=== PATIENT | male | born 1980 | race Caucasian/White ===

== ENCOUNTER 2018-06-25 20:57 | Emergency (ER) | payer MEDICARE ==
[~2018-06-25] VITALS: Ht 167.6 cm; Wt 94.3 kg
[~2018-06-25 20:57] MED LIST: ACET-2247 PO; AEC81 PO; FURO40TA7 PO; GLUC1KIT6 SQ; HYDR25TA PO; ISOS30TA6 PO; METO-391 PO; NITR0.4T SL; PANT40TA25 PO
[2018-06-25 21:42] LABS: BASOPHILS % (AUTO) 1.1 % (0.0-5.0); EOSINOPHILS % (AUTO) 7.6 % (0.0-8.0); HEMATOCRIT 33.7 % (42-54); LYMPHOCYTES % (AUTO) 23.1 % (21.0-51.0); MEAN CORPUSCULAR HEMOGLOBIN 24.9 pg (27.0-33.0); MEAN CORPUSCULAR VOLUME 80.4 fL (79-99); MONOCYTES % (AUTO) 6.6 % (3.0-13.0); NEUTROPHILS % (AUTO) 61.6 % (40.0-77.0); PLATELET COUNT (AUTO) 413 K/uL (130-400); RED BLOOD CELL COUNT(AUTO) 4.19 MIL/uL (4.50-6.20); RED CELL DISTRIBUTION WIDTH 14.7 % (11.0-15.5); WHITE BLOOD COUNT (AUTO) 12.1 K/uL (4.8-10.8)
[2018-06-25] MEDS ORDERED: MORPHINE SULFATE 4 MG/1ML SYG ONE (21:57)
[2018-06-25 22:02] LABS: CREATININE 1.4 mg/dL (0.5-1.5); POTASSIUM 4.2 mmol/L (3.5-5.1)
[2018-06-25 22:09] LABS: BILIRUBIN,TOTAL 0.4 mg/dL (0.2-1.0); TOTAL PROTEIN, SERUM 8.3 g/dL (6.0-8.3)
[2018-06-25] MEDS ORDERED: CEFTRIAXONE SODIUM 1 GM ONE (22:45)
[2018-06-25] MEDS ORDERED: VANCOMYCIN 1GM+NS 250ML 250 ML IV SCH (23:30)
[2018-06-25] MEDS ORDERED: ONDANSETRON HCL 4 MG/2 ML VIAL IVP PRN (23:30)
[2018-06-25] MEDS ORDERED: GLUCAGON 1MG KIT 1 MG ML IM PRN (23:30)
[2018-06-25] MEDS ORDERED: MORPHINE SULFATE 2 MG/ML 1ML SYG IVP PRN (23:30)
[2018-06-25] MEDS ORDERED: DEXTROSE 50%-WATER 50 ML DISP.SYRIN IV PRN (23:30)
[2018-06-26] MEDS ORDERED: INSULIN R PO SS1 SQ SCH (07:30)
[2018-06-26] MEDS ORDERED: ENOXAPARIN SODIUM 40 MG/0.4 ML SYRINGE SQ SCH (09:00)
[2018-06-26] MEDS ORDERED: PANTOPRAZOLE SODIUM 40 MG TABLET.DR PO SCH (09:00)
[2018-06-26] MEDS ORDERED: CEFTRIAXONE SODIUM 1 GM IVP SCH (23:00)
== END 2018-06-25 23:42 | disposition left against medical advice (07) ==
LOC: EDH 20:57
DX: L03.116 Cellulitis of left lower limb (principal); Z98.890 Other specified postprocedural states; Z88.6 Allergy status to analgesic agent; Z90.49 Acquired absence of other specified parts of digestive tract
CPT/HCPCS: 36415; 73630; 80053; 83605; 85025; 85378; 87040 ×2; 93005; 93971; 96374; 96375; 99284; J0696; J2270

== ENCOUNTER → 2018-11-10 | Outpatient (CLI) | payer MEDICARE | END | disposition home or self-care (01) | LOC: SHCH 10:56 | PROVIDERS: ATTEND Internal Medicine Cardiovascular Disease | DX: R06.09 Other forms of dyspnea (principal); I10 Essential (primary) hypertension | CPT/HCPCS: 93306 ==

== ENCOUNTER 2019-03-28 21:10 | Inpatient (IN) | payer MEDICARE ==
[~2019-03-28] VITALS: Ht 167.6 cm; Wt 100.0 kg
[2019-03-28] MEDS ORDERED: DEXTROSE 50%-WATER 50 ML DISP.SYRIN IV ONE ×3 (21:37→23:57)
[2019-03-28] MEDS ORDERED: SODIUM CHLORIDE 0.9% 1000ML 1,000 ML IV ONE (21:53)
[2019-03-28] MEDS ORDERED: MORPHINE SULFATE 4 MG/1ML SYG ONE (21:53)
[2019-03-28] MEDS ORDERED: ONDANSETRON HCL 4 MG/2 ML VIAL ONE (21:53)
[2019-03-28] MEDS ORDERED: ACETAMINOPHEN EXTRA STRENGTH 500 MG TABLET ONE (22:09)
[2019-03-28 22:35] LABS: POTASSIUM 3.5 mmol/L (3.5-5.1)
[2019-03-28 22:36] LABS: BASOPHILS % (AUTO) 0.6 % (0.0-5.0); EOSINOPHILS % (AUTO) 3.6 % (0.0-8.0); HEMATOCRIT 33.9 % (42-54); LYMPHOCYTES % (AUTO) 10.5 % (21.0-51.0); MEAN CORPUSCULAR HEMOGLOBIN 30.7 pg (27.0-33.0); MEAN CORPUSCULAR HGB CONC 34.4 g/dL (32.0-36.0); MEAN CORPUSCULAR VOLUME 89.4 fL (79-99); MONOCYTES % (AUTO) 3.8 % (3.0-13.0); NEUTROPHILS % (AUTO) 81.5 % (40.0-77.0); NUCLEATED RED BLOOD CELLS 0.1 % (0.0-0.19); PLATELET COUNT (AUTO) 372 K/uL (130-400); RED BLOOD CELL COUNT(AUTO) 3.79 MIL/uL (4.50-6.20); RED CELL DISTRIBUTION WIDTH 14.4 % (11.0-15.5); WHITE BLOOD COUNT (AUTO) 17.4 K/uL (4.8-10.8)
[2019-03-28 22:37] LABS: INR 0.95 (0.85-1.15)
[2019-03-28 22:39] LABS: ALBUMIN 3.2 g/dL (3.5-5.0); BILIRUBIN,TOTAL 1.2 mg/dL (0.2-1.0); TOTAL PROTEIN, SERUM 8.3 g/dL (6.0-8.3)
[2019-03-28] MEDS ORDERED: DEXTROSE 10%-WATER 1,000 ML IV ONE (22:55)
[2019-03-28] MEDS ORDERED: DEXAMETHASONE SOD PHOSPHATE 10MG/ML 1ML VIAL ONE (23:32)
[2019-03-28] MEDS ORDERED: KETOROLAC TROMETHAMINE 30MG/ML ONE (23:56)
[2019-03-29] MEDS ORDERED: FAMOTIDINE/PF 20 MG/2 ML VIAL IV ONE (00:29)
[2019-03-29] MEDS ORDERED: HYDROCORTISONE SOD SUCCINATE 100 MG/2 ML VIAL ONE (00:29)
[2019-03-29] MEDS ORDERED: LEVOFLOXACIN 500 MG/D5W 100 ML 100 ML ONE (01:09)
[2019-03-29] MEDS ORDERED: ACETAMINOPHEN 325 MG TAB PO PRN (01:15)
[2019-03-29] MEDS ORDERED: DEXTROSE 10%-WATER 1,000 ML IV SCH (01:30)
--- NOTE | 2019-03-29 02:01 | NUR ---
HOME MEDS PATIENT ADVISED TO CONTACT SPOUSE TO BRING HOME MEDS IN THE MORNING. PATIENT STABLE, GOOD, AND ALERT x3. CALL LIGHT WITHIN REACH, PATIENT VOICES NO FURTHER CONCERNS.
[2019-03-29] MEDS ORDERED: ONDANSETRON HCL 4 MG/2 ML VIAL ONE (02:58)
[2019-03-29 03:02] VITALS: BP 142/88
[2019-03-29] MEDS: ONDANSETRON HCL 4 MG/2 ML VIAL IVP PRN ×2 (03:52→14:08)
[2019-03-29] MEDS: MORPHINE SULFATE 4 MG/1ML SYG IVP PRN ×4 (03:58→19:48)
--- NOTE | 2019-03-29 04:12 | NUR ---
PLUMBER AND TINNER [facility] PAGED PER PT , HE HAS HX OF SEIZURES PT STATES HE HAS NOT YET STARTED ON HIS MEDICATION FOR SEIZURES DILANTIN WHICH HE DOES NOT KNOW THE DOSE AND THE IS YET TO BRING HOME MEDS ,
[2019-03-29] MEDS ORDERED: PHARMACY COMMUNICATION MISC SCH (04:45)
[2019-03-29] MEDS ORDERED: LORAZEPAM 2 MG/ML 1 ML VIAL IVP PRN ×2 (05:00→06:45)
[2019-03-29 05:32] LABS: HEMATOCRIT 35.1 % (42-54); MEAN CORPUSCULAR HEMOGLOBIN 29.9 pg (27.0-33.0); MEAN CORPUSCULAR HGB CONC 33.1 g/dL (32.0-36.0); MEAN CORPUSCULAR VOLUME 90.5 fL (79-99); PLATELET COUNT (AUTO) 317 K/uL (130-400); RED BLOOD CELL COUNT(AUTO) 3.88 MIL/uL (4.50-6.20); RED CELL DISTRIBUTION WIDTH 14.5 % (11.0-15.5); WHITE BLOOD COUNT (AUTO) 14.7 K/uL (4.8-10.8)
[2019-03-29 05:50] LABS: ALBUMIN 2.8 g/dL (3.5-5.0); CREATININE 2.2 mg/dL (0.5-1.5); PHOSPHORUS 2.4 mg/dL (2.5-4.9); POTASSIUM 5.2 mmol/L (3.5-5.1); TOTAL PROTEIN, SERUM 7.8 g/dL (6.0-8.3)
[2019-03-29] MEDS ORDERED: GLUCAGON 1MG KIT 1 MG ML IM PRN (06:45)
[2019-03-29] MEDS ORDERED: DEXTROSE 50%-WATER 50 ML DISP.SYRIN IV PRN (06:45)
[2019-03-29] MEDS ORDERED: INSULIN R PO SS1 SQ SCH (07:30)
[2019-03-29 08:00] VITALS: BP_SYST 152; BP_SYST 158; BP_DIAS 97; BP_DIAS 99
--- NOTE | 2019-03-29 08:36 | NUR ---
AM INSULIN Patient refused 8units of regular insulin. Stated he is going to pass on this dose. States his outpatient doctor has told him not to administer anything until his blood sugar is above 300 due to patient's history of dropping too soon, too low from as high as 500s to as low as the 20s. No regular insulin administered at this time. Patient is also attempting to eat but he states he is taking his time due to his fears of nausea.
[2019-03-29] MEDS: PANTOPRAZOLE 40 MG/VIAL IVP SCH (08:46)
[2019-03-29] MEDS ORDERED: DEXTROSE 5 % AND 0.9 % NACL 1,000 ML IV ONE (10:06)
[2019-03-29] MEDS: DEXTROSE 5 % AND 0.9 % NACL 1,000 ML IV SCH ×3 (10:08→21:06)
--- NOTE | 2019-03-29 11:44 | NUR ---
DCP CM met with pt discussed dc plans. Pt is independent prior to admission, lives at home with spouse. Denies any equipments/services. Pt feels safe to go back home, spouse able to assist with transportation and needs as necessary. DC plan to home once stable. CM to cont to follow up. Addendum: 03/29/19 at 1145 by DARIO CRUZ LVN CM Amended: Links added.
[2019-03-29 12:00] VITALS: BP 145/87
[2019-03-29 16:00] VITALS: BP 163/91
[2019-03-29 20:02] VITALS: BP 106/55
[2019-03-29] MEDS: PROMETHAZINE HCL 25 MG TABLET PO PRN (21:23)
[2019-03-29 23:31] VITALS: BP 110/73
[2019-03-29] MEDS: INSULIN HUMULIN R 100 UNIT/ML 3ML SQ SCH (23:54)
[2019-03-30] MEDS: MORPHINE SULFATE 4 MG/1ML SYG IVP PRN ×4 (03:25→22:27)
[2019-03-30] MEDS: INSULIN HUMULIN R 100 UNIT/ML 3ML SQ SCH ×4 (03:31→16:00)
[2019-03-30 03:36] VITALS: BP 126/46
[2019-03-30 05:09] LABS: HEMATOCRIT 31.3 % (42-54); MEAN CORPUSCULAR HEMOGLOBIN 30.3 pg (27.0-33.0); MEAN CORPUSCULAR HGB CONC 33.5 g/dL (32.0-36.0); MEAN CORPUSCULAR VOLUME 90.4 fL (79-99); PLATELET COUNT (AUTO) 321 K/uL (130-400); RED BLOOD CELL COUNT(AUTO) 3.46 MIL/uL (4.50-6.20); RED CELL DISTRIBUTION WIDTH 14.3 % (11.0-15.5); WHITE BLOOD COUNT (AUTO) 22.6 K/uL (4.8-10.8)
[2019-03-30 05:18] LABS: HEMOGLOBIN A1C 5.9 % (4.0-6.0)
[2019-03-30 05:29] LABS: CREATININE 2.2 mg/dL (0.5-1.5); POTASSIUM 4.5 mmol/L (3.5-5.1)
[2019-03-30 07:57] VITALS: BP 115/65
--- NOTE | 2019-03-30 08:31 | NUR ---
BLOOD SUGAR Level is 176mg/dL. Per Ella Mathis, do not give any coverage at this time.
[2019-03-30] MEDS ORDERED: METOCLOPRAMIDE 10 MG/2 ML VIAL ONE (08:44)
[2019-03-30] MEDS: PROMETHAZINE HCL 25 MG TABLET PO PRN (08:55)
[2019-03-30] MEDS: PANTOPRAZOLE 40 MG/VIAL IVP SCH (08:57)
[2019-03-30] MEDS: METOCLOPRAMIDE 10 MG/2 ML VIAL IVP SCH ×2 (09:07→17:20)
[2019-03-30] MEDS: DEXTROSE 5 % AND 0.9 % NACL 1,000 ML IV SCH (09:12)
[2019-03-30 12:00] VITALS: BP 113/67
[2019-03-30] MEDS: METRONIDAZOLE 500MG/100ML BAG 100 ML IV SCH ×2 (15:13→22:26)
[2019-03-30 16:00] VITALS: BP 128/82
[2019-03-30] MEDS: LEVOFLOXACIN 500 MG/D5W 100 ML 100 ML IV SCH (17:11)
[2019-03-30 19:46] VITALS: BP 148/87
[2019-03-30 23:32] VITALS: BP 124/79
[2019-03-31] MEDS: METOCLOPRAMIDE 10 MG/2 ML VIAL IVP SCH ×3 (01:26→16:45)
[2019-03-31 03:34] VITALS: BP 121/80
[2019-03-31 05:06] LABS: HEMATOCRIT 32.2 % (42-54); MEAN CORPUSCULAR HEMOGLOBIN 30.5 pg (27.0-33.0); MEAN CORPUSCULAR HGB CONC 33.9 g/dL (32.0-36.0); MEAN CORPUSCULAR VOLUME 90.2 fL (79-99); NUCLEATED RED BLOOD CELLS 0.1 % (0.0-0.19); PLATELET COUNT (AUTO) 293 K/uL (130-400); RED BLOOD CELL COUNT(AUTO) 3.57 MIL/uL (4.50-6.20); RED CELL DISTRIBUTION WIDTH 14.9 % (11.0-15.5); WHITE BLOOD COUNT (AUTO) 9.4 K/uL (4.8-10.8)
[2019-03-31 05:28] LABS: ALBUMIN 2.3 g/dL (3.5-5.0); BILIRUBIN,TOTAL 0.5 mg/dL (0.2-1.0); CREATININE 1.7 mg/dL (0.5-1.5); POTASSIUM 4.7 mmol/L (3.5-5.1); TOTAL PROTEIN, SERUM 6.8 g/dL (6.0-8.3)
[2019-03-31] MEDS: METRONIDAZOLE 500MG/100ML BAG 100 ML IV SCH ×2 (05:39→14:00)
[2019-03-31] MEDS: DEXTROSE 5 % AND 0.9 % NACL 1,000 ML IV SCH (05:39)
[2019-03-31] MEDS: MORPHINE SULFATE 4 MG/1ML SYG IVP PRN (05:46)
[2019-03-31 06:01] LABS: APPEARANCE,URINE Clear (CLEAR); BILIRUBIN,URINE Negative (NEGATIVE); COLOR,URINE Yellow (YELLOW); GLUCOSE, URINE (UA) Negative (NEGATIVE); KETONES,URINE Negative (NEGATIVE); LEUKOCYTE ESTERASE ,URINE Negative (NEGATIVE); NITRATE,URINE Negative (NEGATIVE); OCCULT BLOOD,URINE Negative (NEGATIVE); PH,URINE 5.5 (5.0-8.0); PROTEIN,URINE Negative (NEGATIVE)
[2019-03-31 06:02] LABS: BAND NEUTROPHILS % (MANUAL) 1 % (0-2); BASOPHILS % (MANUAL) 2 % (0-2); EOSINOPHILS % (MANUAL) 4 % (1-6); LYMPHOCYTES % (MANUAL) 27 % (22-44); MAN.DIFF COMMENT-IMPRESSION MANUAL DIFFERENTIAL; MONOCYTES % (MANUAL) 7 % (2-9); PLATELET MORPHOLOGY COMMENT ADEQUATE; SEGMENTED NEUTROPHILS % 59 % (40-70)
[2019-03-31] MEDS ORDERED: PANTOPRAZOLE SODIUM 40 MG TABLET.DR PO SCH (07:46)
[2019-03-31 08:00] VITALS: BP 169/88
[2019-03-31 12:00] VITALS: BP 163/96
[2019-03-31] MEDS ORDERED: LEVO500T2 PO (12:22)
[2019-03-31] MEDS ORDERED: METR500T PO (12:22)
[2019-03-31] MEDS ORDERED: HEPARIN SODIUM/PF 100UNIT/ML 5ML SYRINGE IV SCH (14:15)
[2019-03-31] MEDS: LEVOFLOXACIN 500 MG/D5W 100 ML 100 ML IV SCH (15:00)
== END 2019-03-31 17:25 | disposition home or self-care (01) | DRG 372 ==
LOC: EDH 21:10 → EDHIP 03-29 00:50 → OBSVTOIN 03-29 00:50 → 3AH 03-29 03:58
PROVIDERS: ADMIT Internal Medicine Critical Care Medicine; ATTEND Internal Medicine Critical Care Medicine
DX: A04.9 Bacterial intestinal infection, unspecified (principal); N17.9 Acute kidney failure, unspecified; E86.0 Dehydration; E11.43 Type 2 diabetes mellitus with diabetic autonomic (poly)neuropathy; E11.649 Type 2 diabetes mellitus with hypoglycemia without coma; K31.84 Gastroparesis; E78.5 Hyperlipidemia, unspecified; F31.9 Bipolar disorder, unspecified; F41.9 Anxiety disorder, unspecified; G40.909 Epilepsy, unspecified, not intractable, without status epilepticus; I10 Essential (primary) hypertension; Z79.82 Long term (current) use of aspirin; Z86.711 Personal history of pulmonary embolism; Z86.718 Personal history of other venous thrombosis and embolism; Z82.49 Family history of ischemic heart disease and other diseases of the circulatory system
CPT/HCPCS: 36415; 71045; 74176; 80048; 80053; 81003; 82533; 82948; 83036; 83605; 83690; 84100; 85025; 85027; 85610; 85730; 87040; 87088; 87804; 99291; C9113; G0378; J1100; J1642; J1720; J1815; J1885; J1956; J2270; J2405; J2765; J3490; J7030; J7042; J7070; Q0169

== ENCOUNTER 2019-07-18 02:06 | Observation (INO) | payer MEDICARE ==
[~2019-07-18] VITALS: Ht 167.6 cm; Wt 100.7 kg
[~2019-07-18 02:06] MED LIST changes: +LEVO500T2 PO; +METR500T PO
[2019-07-18 02:43] LABS: BASOPHILS % (AUTO) 0.5 % (0.0-5.0); EOSINOPHILS % (AUTO) 3.8 % (0.0-8.0); HEMATOCRIT 35.8 % (42-54); LYMPHOCYTES % (AUTO) 10.2 % (21.0-51.0); MEAN CORPUSCULAR HEMOGLOBIN 28.7 pg (27.0-33.0); MEAN CORPUSCULAR HGB CONC 31.8 g/dL (32.0-36.0); MEAN CORPUSCULAR VOLUME 90.2 fL (79-99); MONOCYTES % (AUTO) 5.2 % (3.0-13.0); NEUTROPHILS % (AUTO) 79.9 % (40.0-77.0); PLATELET COUNT (AUTO) 284 K/uL (130-400); RED BLOOD CELL COUNT(AUTO) 3.97 MIL/uL (4.50-6.20); RED CELL DISTRIBUTION WIDTH 13.4 % (11.0-15.5); WHITE BLOOD COUNT (AUTO) 18.9 K/uL (4.8-10.8)
[2019-07-18 03:01] LABS: INR 0.98 (0.85-1.15); PARTIAL THROMBOPLASTIN TIME 21.6 SEC (26.3-35.5); PROTHROMBIN TIME 10.3 SEC (9.6-11.6)
[2019-07-18] MEDS ORDERED: ONDANSETRON HCL 4 MG/2 ML VIAL ONE (03:24)
[2019-07-18] MEDS ORDERED: SODIUM CHLORIDE 0.9% 1000ML 1,000 ML IV ONE ×2 (03:25→16:22)
[2019-07-18] MEDS ORDERED: DEXTROSE 50%-WATER 50 ML DISP.SYRIN IV ONE (04:27)
[2019-07-18] MEDS ORDERED: DEXTROSE 10%-WATER 1,000 ML IV ONE (04:39)
[2019-07-18] MEDS ORDERED: CEFTRIAXONE SODIUM 1 GM ONE (05:52)
[2019-07-18] MEDS ORDERED: CLINDAMYCIN 600 MG/D5% WATER 50 ML IV ONE ×2 (06:46→14:54)
--- NOTE | 2019-07-18 11:46 | NUR ---
Initial Assessment SW spoke with patient. Patient lives with spouse. No home health but does have PHC with [facility] X 24.5 hours a week. No dialysis. DME: walker with seat, oximeter, BOM, glucometer (no insulin), nebulizer. Patient does not work. Patient needs assistance with ADL's and does not drive. PCP is Dr. Jason Lambert. Pharmacy is [facility] located in [place]. DCP is home.
[2019-07-18] MEDS ORDERED: ONDANSETRON HCL 4 MG/2 ML VIAL IV PRN (12:15)
[2019-07-18] MEDS: CLINDAMYCIN 600 MG/D5% WATER 50 ML IV SCH ×2 (12:15→20:14)
[2019-07-18] MEDS ORDERED: ACETAMINOPHEN 325 MG TAB PO PRN ×2 (12:15)
[2019-07-18] MEDS ORDERED: ALBUTEROL SULFATE 0.083% 2.5 MG/3 ML INH IH PRN (12:15)
[2019-07-18] MEDS ORDERED: DIPHENHYDRAMINE HCL 25 MG CAPSULE PO PRN (12:15)
[2019-07-18] MEDS ORDERED: ACETAMINOPHEN-CODEINE 300/30MG TAB PO PRN ×2 (12:15)
[2019-07-18] MEDS ORDERED: LACTULOSE 20 GM/30 ML UDCUP PO PRN (12:15)
[2019-07-18 12:47] LABS: ALANINE AMINOTRANSFERASE 22 U/L (12-78); ALBUMIN 2.5 g/dL (3.5-5.0); ASPARTATE AMINOTRANSFERASE 21 U/L (10-37); BILIRUBIN,TOTAL 0.7 mg/dL (0.2-1.0); CARBON DIOXIDE 25 mmol/L (21-32); CHLORIDE 104 mmol/L (101-111); CREATINE KINASE, TOTAL 281 U/L (21-232); CREATININE 1.2 mg/dL (0.5-1.5); GLOMERULAR FILTR. RATE CALC 71 mL/min (>60); GLUCOSE,RANDOM 202 mg/dL (70-105); LIPASE 71 U/L (114-286); PHENYTOIN (DILANTIN) < 0.5 mcg/mL (10.0-20.0); POTASSIUM 3.8 mmol/L (3.5-5.1); SODIUM SERUM 138 mmol/L (136-145); UREA NITROGEN, BLOOD 12 mg/dL (7-18)
[2019-07-18] MEDS: ZOSYN 3.375GM+NS 50ML 50 ML IV SCH ×2 (13:00→20:14)
[2019-07-18] MEDS ORDERED: METOCLOPRAMIDE 10 MG/2 ML VIAL ONE (13:23)
[2019-07-18] MEDS ORDERED: METHYLPREDNISOLONE SOD SUCC 125MG/2ML VIAL ONE (13:24)
[2019-07-18] MEDS ORDERED: ENOXAPARIN SODIUM 40 MG/0.4 ML SYRINGE SQ ONE (13:24)
[2019-07-18] MEDS ORDERED: ZOSYN 3.375GM+NS 50ML 50 ML IV ONE (13:24)
[2019-07-18] MEDS ORDERED: FAMOTIDINE/PF 20 MG/2 ML VIAL IV ONE (13:25)
[2019-07-18] MEDS ORDERED: ACETAMINOPHEN-CODEINE 300/30MG TAB ONE (13:25)
[2019-07-18] MEDS: METHYLPREDNISOLONE SOD SUCC 125MG/2ML VIAL IV SCH ×2 (14:00→20:15)
[2019-07-18] MEDS ORDERED: PHENYTOIN SODIUM 100 MG ERCAP PO ONE (16:23)
[2019-07-18] MEDS: METOCLOPRAMIDE 10 MG/2 ML VIAL IVP SCH (17:00)
[2019-07-18 18:35] VITALS: BP 145/98
[2019-07-18 19:00] VITALS: BP 131/76
[2019-07-18] MEDS: CLONAZEPAM 2 MG TABLET PO SCH (20:13)
[2019-07-18] MEDS: PHENYTOIN SODIUM 100 MG ERCAP PO SCH (20:13)
[2019-07-18] MEDS: FAMOTIDINE 20MG TAB 20 MG TAB PO SCH (20:13)
[2019-07-18] MEDS: VIBERZI 100 MG PO SCH (20:17)
--- NOTE | 2019-07-18 20:30 | NUR ---
PAGED MARTITA FALCON FROM [facility] FOR PATIENT'S BLOOD SUGAR OF 296, NO SLIDING SCALE, AND HIGH BLOOD PRESSURE OF 175/97. PENDING CALL BACK.
[2019-07-18] MEDS ORDERED: GLUCAGON 1MG KIT 1 MG ML IM PRN (21:30)
[2019-07-18] MEDS ORDERED: DEXTROSE 50%-WATER 50 ML DISP.SYRIN IV PRN (21:30)
[2019-07-18] MEDS ORDERED: HYDRALAZINE HCL 20 MG/ML VIAL ONE (21:40)
[2019-07-18] MEDS: INSULIN HUMULIN R 100 UNIT/ML 3ML SQ SCH ×2 (21:43→23:26)
[2019-07-18] MEDS ORDERED: HYDRALAZINE HCL 20 MG/ML VIAL IV PRN (21:45)
[2019-07-18 23:00] VITALS: BP 125/76
--- NOTE | 2019-07-19 | NUR ---
PAGED MARTITA FALCON, [facility] FOR PATIENT'S BLOOD SUGAR OF 402. PATIENT HAS NAUSEA AND PAIN. HE DIDN'T GIVE ANY NEW ORDERS BUT TO CONTINUE MONITORING SUGAR EVERY 4 HOURS AND USE THE 1/2 SLIDING SCALE. GAVE ZOFRAN AND ACETAMINOPHEN WITH CODEINE TO PATIENT.
[2019-07-19 03:00] VITALS: BP 147/98
[2019-07-19] MEDS: CLINDAMYCIN 600 MG/D5% WATER 50 ML IV SCH ×2 (03:20→12:05)
[2019-07-19] MEDS: ZOSYN 3.375GM+NS 50ML 50 ML IV SCH ×2 (03:20→13:31)
[2019-07-19] MEDS: SODIUM CHLORIDE 0.9% 1000ML 1,000 ML IV SCH ×2 (03:31→08:05)
[2019-07-19 05:16] LABS: HEMATOCRIT 39.4 % (42-54); MEAN CORPUSCULAR HEMOGLOBIN 28.7 pg (27.0-33.0); MEAN CORPUSCULAR HGB CONC 31.7 g/dL (32.0-36.0); MEAN CORPUSCULAR VOLUME 90.4 fL (79-99); PLATELET COUNT (AUTO) 345 K/uL (130-400); RED BLOOD CELL COUNT(AUTO) 4.36 MIL/uL (4.50-6.20); RED CELL DISTRIBUTION WIDTH 13.5 % (11.0-15.5); WHITE BLOOD COUNT (AUTO) 26.1 K/uL (4.8-10.8)
[2019-07-19] MEDS: METOCLOPRAMIDE 10 MG/2 ML VIAL IVP SCH ×2 (05:18→09:47)
[2019-07-19] MEDS: METHYLPREDNISOLONE SOD SUCC 125MG/2ML VIAL IV SCH (05:18)
[2019-07-19] MEDS: INSULIN HUMULIN R 100 UNIT/ML 3ML SQ SCH ×3 (05:22→16:00)
[2019-07-19 05:32] LABS: ALBUMIN 2.5 g/dL (3.5-5.0); BILIRUBIN,DIRECT 0.1 mg/dL (0.0-0.3); BILIRUBIN,TOTAL 0.7 mg/dL (0.2-1.0); CREATININE 1.5 mg/dL (0.5-1.5); POTASSIUM 4.8 mmol/L (3.5-5.1); TOTAL PROTEIN, SERUM 7.8 g/dL (6.0-8.3)
[2019-07-19 07:57] VITALS: BP 129/82
[2019-07-19] MEDS ORDERED: ENOXAPARIN SODIUM 40 MG/0.4 ML SYRINGE SQ SCH ×2 (09:00)
[2019-07-19] MEDS: VIBERZI 100 MG PO SCH (09:00)
[2019-07-19] MEDS: PHENYTOIN SODIUM 100 MG ERCAP PO SCH ×2 (09:46→13:31)
[2019-07-19] MEDS: CLONAZEPAM 2 MG TABLET PO SCH ×2 (09:46→13:31)
[2019-07-19] MEDS: FAMOTIDINE 20MG TAB 20 MG TAB PO SCH (09:46)
[2019-07-19 11:33] VITALS: BP 137/91
[2019-07-19] MEDS ORDERED: METHYLPREDNISOLONE SOD SUCC 40MG/ML 1ML IVP SCH (13:30)
--- NOTE | 2019-07-19 14:16 | NUR ---
[id number] patient signed IM Letter. Faxed to [phone] and placed in chart under consent tab
[2019-07-19] MEDS ORDERED: MOXI400T33 PO (14:30)
[2019-07-19] MEDS ORDERED: METF-444 PO (14:30)
[2019-07-19] MEDS ORDERED: CLIN300C9 PO (14:30)
--- NOTE | 2019-07-19 14:33 | NUR ---
[facility] CONSULT PATIENT ASSESSED ORDERED: PATIENT PRESENTS WITH OPEN WOUNDS TO UMBILICUS AND LEFT PRE TIB; [facility] RECOMMENDATIONS SUBMITTED. Addendum: 07/19/19 at 1435 by SELENE SAMUEL LVN LVN W Amended: Links added.
[2019-07-19] MEDS ORDERED: HONEY 1 APPL/ML TUBE TP ONE (17:47)
== END 2019-07-19 18:00 | disposition home or self-care (01) ==
LOC: EDH 02:06 → EDHIP 05:01 → OBSVTOIN 05:01 → INTOOBSV 05:01 → 3AH 18:09
PROVIDERS: ADMIT Internal Medicine; ATTEND Internal Medicine
DX: E11.649 Type 2 diabetes mellitus with hypoglycemia without coma (principal); G40.909 Epilepsy, unspecified, not intractable, without status epilepticus; L03.116 Cellulitis of left lower limb; E11.43 Type 2 diabetes mellitus with diabetic autonomic (poly)neuropathy; K31.84 Gastroparesis; F41.9 Anxiety disorder, unspecified; F31.9 Bipolar disorder, unspecified; I10 Essential (primary) hypertension; Z79.899 Other long term (current) drug therapy; Z90.49 Acquired absence of other specified parts of digestive tract; Z88.6 Allergy status to analgesic agent; Z79.82 Long term (current) use of aspirin
CPT/HCPCS: 36415 ×2; 73030; 73590; 76705; 80048; 80053; 80076; 80185; 82550 ×2; 82948 ×12; 83605; 83690; 84484; 85025; 85027; 85610; 85651; 85730; 86038; 86140; 86255 ×3; 86431; 87040 ×2; 87804 ×2; 93005; 93971; 94664; 96365; 96366 ×2; 96368; 96372 ×2; 96375; 96376; 97116; 97161; 99284; G0378 ×20; G8978; G8979; G8980; G8981; G8982; G8983; J0360; J0696; J1650 ×2; J1815 ×3; J2405 ×2; J2543 ×4; J2765 ×3; J2930 ×3; J3490 ×7; J7030 ×2; J7070; 86215; 86235

== ENCOUNTER 2021-05-24 14:17 | Emergency (ER) | payer MEDICARE ==
[~2021-05-24] VITALS: Ht 167.6 cm; Wt 93.0 kg
[~2021-05-24 14:17] MED LIST changes: +CLIN-141 PO; -ISOS30TA6 PO; +ISOS30TA92 PO; -LEVO500T2 PO; +METF-444 PO; -METR500T PO; +MOXI400T33 PO; -PANT40TA25 PO; +PANT40TA54 PO
[2021-05-24 15:10] LABS: BASOPHILS % (AUTO) 0.7 % (0.0-5.0); EOSINOPHILS % (AUTO) 7.1 % (0.0-8.0); HEMATOCRIT 38.2 % (42-54); LYMPHOCYTES % (AUTO) 28.4 % (21.0-51.0); MEAN CORPUSCULAR HEMOGLOBIN 28.6 pg (27.0-33.0); MEAN CORPUSCULAR HGB CONC 32.5 g/dL (32.0-36.0); MEAN CORPUSCULAR VOLUME 88.2 fL (79-99); MONOCYTES % (AUTO) 4.6 % (3.0-13.0); NEUTROPHILS % (AUTO) 58.9 % (40.0-77.0); PLATELET COUNT (AUTO) 358 K/uL (130-400); RED BLOOD CELL COUNT(AUTO) 4.33 MIL/uL (4.50-6.20); RED CELL DISTRIBUTION WIDTH 14.1 % (11.0-15.5); WHITE BLOOD COUNT (AUTO) 10.8 K/uL (4.8-10.8)
[2021-05-24 15:20] LABS: INR 0.98 (0.85-1.15); PROTHROMBIN TIME 10.7 SEC (9.6-11.6)
[2021-05-24 15:22] LABS: PARTIAL THROMBOPLASTIN TIME 26.7 SEC (26.3-35.5)
[2021-05-24] MEDS ORDERED: DEXTROSE 50%-WATER 50 ML DISP.SYRIN IV ONE ×2 (15:25→16:00)
[2021-05-24 15:31] LABS: B-TYPE NATRIURETIC PEPTIDE 14 pg/mL (0-100)
[2021-05-24 15:34] LABS: ALBUMIN 3.5 g/dL (3.5-5.0); BILIRUBIN,TOTAL 0.8 mg/dL (0.2-1.0); CREATININE 1.5 mg/dL (0.5-1.5); MAGNESIUM 1.7 mg/dL (1.80-2.40); POTASSIUM 3.7 mmol/L (3.5-5.1); TOTAL PROTEIN, SERUM 8.5 g/dL (6.0-8.3)
[2021-05-24] MEDS ORDERED: MORPHINE 4 MG SYG IV ONE (17:30)
[2021-05-24] MEDS ORDERED: 0.9%NACL 1000ML 1,000 ML IV ONE (19:00)
[2021-05-24] MEDS ORDERED: ORPHENADRINE CITRATE 30 MG/ML ML IV ONE (22:00)
[2021-05-24 23:44] VITALS: BP 147/87
[2021-05-25 00:04] LABS: APPEARANCE,URINE Clear (CLEAR); BILIRUBIN,URINE Negative (NEGATIVE); COLOR,URINE Yellow (YELLOW); GLUCOSE, URINE (UA) Negative (NEGATIVE); KETONES,URINE Negative (NEGATIVE); LEUKOCYTE ESTERASE ,URINE Trace (NEGATIVE); NITRATE,URINE Negative (NEGATIVE); OCCULT BLOOD,URINE Negative (NEGATIVE); PH,URINE 5.5 (5.0-8.0); PROTEIN,URINE POS 1+ mg/dL (NEGATIVE); UROBILINOGEN,URINE 0.2 mg/dL (0.2-1.0)
[2021-05-25] MEDS ORDERED: CYCL-309 PO (00:23)
[2021-05-25] MEDS ORDERED: HEPARIN PF LOCK 500 UNIT/5ML IV ONE (00:46)
[2021-05-25] MEDS ORDERED: HEPARIN PF LOCK 500 UNIT/5ML IV SCH (01:00)
[2021-05-25 01:16] LABS: BACTERIA,URINE Rare /HPF (None Seen); RBC,URINE None Seen /HPF (0-1); SQUAMOUS EPITHELIAL CELL,UR 0-2 /HPF (0-2)
== END 2021-05-25 00:45 | disposition home or self-care (01) ==
LOC: EDH 14:17
DX: E11.649 Type 2 diabetes mellitus with hypoglycemia without coma (principal); R55 Syncope and collapse; M25.511 Pain in right shoulder; I10 Essential (primary) hypertension; Z88.6 Allergy status to analgesic agent; Z79.899 Other long term (current) drug therapy; Z79.84 Long term (current) use of oral hypoglycemic drugs; Z79.82 Long term (current) use of aspirin
CPT/HCPCS: 36415; 70450; 71045; 73030; 73200; 78579; 80053; 81001; 82550; 82948 ×3; 83735; 83880; 84484; 85025; 85378; 85610; 85730; 93005; 96361; 96374; 96375; 99285; A9558; J1642; J2270; J2360; J7070

== ENCOUNTER 2021-07-02 13:44 | Observation (INO) | payer OTHER, MEDICARE ==
[~2021-07-02] VITALS: Ht 167.6 cm; Wt 88.4 kg
[~2021-07-02 13:44] MED LIST changes: +CYCL-309 PO
[2021-07-02] MEDS ORDERED: DEXTROSE 50%-WATER 50 ML DISP.SYRIN IV ONE ×3 (14:16→16:26)
[2021-07-02 14:35] LABS: BASOPHILS % (AUTO) 0.6 % (0.0-5.0); EOSINOPHILS % (AUTO) 3.9 % (0.0-8.0); HEMATOCRIT 37.6 % (42-54); LYMPHOCYTES % (AUTO) 25.4 % (21.0-51.0); MEAN CORPUSCULAR HGB CONC 31.4 g/dL (32.0-36.0); MEAN CORPUSCULAR VOLUME 89.1 fL (79-99); MONOCYTES % (AUTO) 5.4 % (3.0-13.0); NEUTROPHILS % (AUTO) 64.3 % (40.0-77.0); PLATELET COUNT (AUTO) 357 K/uL (130-400); RED BLOOD CELL COUNT(AUTO) 4.22 MIL/uL (4.50-6.20); RED CELL DISTRIBUTION WIDTH 14.2 % (11.0-15.5); WHITE BLOOD COUNT (AUTO) 7.8 K/uL (4.8-10.8)
[2021-07-02 14:47] LABS: ALBUMIN 3.5 g/dL (3.5-5.0); CREATININE 2.1 mg/dL (0.5-1.5); POTASSIUM 3.2 mmol/L (3.5-5.1); TOTAL PROTEIN, SERUM 8.6 g/dL (6.0-8.3)
[2021-07-02] MEDS ORDERED: POTASSIUM CHLORIDE 10% ELIXIR 20 MEQ/15 ML UDCUP PO PRN (21:00)
[2021-07-02] MEDS: INSULIN HUMULIN R 100 UNIT/ML 3ML SQ SCH (21:00)
[2021-07-02] MEDS ORDERED: MORPHINE 2 MG SYG IVP PRN (21:00)
[2021-07-02] MEDS ORDERED: CLONIDINE HCL 0.1 MG TABLET PO PRN (21:00)
[2021-07-02] MEDS ORDERED: MAGNESIUM 2GM PREMIX 50ML 50 ML IV PRN (21:00)
[2021-07-02] MEDS ORDERED: TEMAZEPAM 15 MG CAPSULE PO PRN (21:00)
[2021-07-02] MEDS ORDERED: LIDOCAINE HCL-MPF 1% 2ML VIAL IV PRN (21:00)
[2021-07-02] MEDS ORDERED: SIMVASTATIN 20 MG TABLET PO SCH (21:00)
[2021-07-02] MEDS ORDERED: ACETAMINOPHEN 650 MG SUPPOSITORY RC PRN (21:00)
[2021-07-02] MEDS ORDERED: GLUCAGON 1MG KIT 1 MG ML IM PRN (21:00)
[2021-07-02] MEDS ORDERED: ONDANSETRON 4MG INJ IVP PRN (21:00)
[2021-07-02] MEDS ORDERED: ACETAMINOPHEN 325 MG TAB PO PRN (21:00)
[2021-07-02] MEDS ORDERED: POTASSIUM CHLORIDE 20MEQ/100ML 100 ML IV PRN (21:00)
[2021-07-02] MEDS: DEXTROSE 5%-LACTATED RINGERS 1,000 ML IV SCH (21:45)
[2021-07-02] MEDS: METOCLOPRAMIDE 5 MG TABLET PO SCH (21:50)
[2021-07-02 21:54] LABS: APPEARANCE,URINE Clear (CLEAR); BILIRUBIN,URINE Negative (NEGATIVE); COLOR,URINE Yellow (YELLOW); GLUCOSE, URINE (UA) Negative (NEGATIVE); KETONES,URINE Negative (NEGATIVE); LEUKOCYTE ESTERASE ,URINE Trace (NEGATIVE); NITRATE,URINE Negative (NEGATIVE); OCCULT BLOOD,URINE Negative (NEGATIVE); PROTEIN,URINE POS 2+ mg/dL (NEGATIVE)
[2021-07-02 21:59] LABS: BACTERIA,URINE Few /HPF (None Seen); HYALINE CASTS, URINE 0-1 /LPF (0-1 /LPF); RBC,URINE 0-1 /HPF (0-1); SQUAMOUS EPITHELIAL CELL,UR Few /HPF (0-2)
[2021-07-03 01:20] VITALS: BP 134/84
[2021-07-03] MEDS: DEXTROSE 50%-WATER 50 ML DISP.SYRIN IV PRN ×2 (01:20→05:55)
[2021-07-03] MEDS ORDERED: PROM25TA7 PO (02:10)
[2021-07-03] MEDS ORDERED: ELUX100T PO (02:10)
[2021-07-03 04:32] VITALS: BP 126/80
[2021-07-03 06:15] LABS: BASOPHILS % (AUTO) 0.4 % (0.0-5.0); EOSINOPHILS % (AUTO) 0.5 % (0.0-8.0); HEMATOCRIT 36.2 % (42-54); LYMPHOCYTES % (AUTO) 11.2 % (21.0-51.0); MEAN CORPUSCULAR HEMOGLOBIN 28.4 pg (27.0-33.0); MEAN CORPUSCULAR HGB CONC 32.6 g/dL (32.0-36.0); NEUTROPHILS % (AUTO) 82.5 % (40.0-77.0); PLATELET COUNT (AUTO) 372 K/uL (130-400); RED BLOOD CELL COUNT(AUTO) 4.16 MIL/uL (4.50-6.20); RED CELL DISTRIBUTION WIDTH 14.2 % (11.0-15.5); WHITE BLOOD COUNT (AUTO) 22.7 K/uL (4.8-10.8)
[2021-07-03 06:36] LABS: CREATININE 1.5 mg/dL (0.5-1.5); POTASSIUM 3.3 mmol/L (3.5-5.1); THYROID STIMULATING HORMONE 0.85 uIU/mL (0.36-3.74)
[2021-07-03] MEDS: INSULIN HUMULIN R 100 UNIT/ML 3ML SQ SCH ×3 (07:30→16:16)
[2021-07-03 08:05] VITALS: BP 108/72
[2021-07-03] MEDS: METOCLOPRAMIDE 5 MG TABLET PO SCH ×3 (08:35→16:16)
[2021-07-03] MEDS ORDERED: PANTOPRAZOLE 40 MG TAB DR PO SCH (09:00)
[2021-07-03] MEDS ORDERED: POLYETHYLENE GLYCOL 3350 17 GM POWD.PACK PO SCH (09:00)
[2021-07-03] MEDS ORDERED: ASPIRIN 81MG CHEW TAB PO SCH (09:00)
[2021-07-03] MEDS ORDERED: ENOXAPARIN SODIUM 40 MG/0.4 ML SYRINGE SQ SCH (09:00)
[2021-07-03] MEDS ORDERED: ISOSORBIDE MONO 60MG SR TAB PO SCH (09:00)
[2021-07-03] MEDS: KCL 20 MEQ ERTAB PO PRN (09:21)
[2021-07-03 11:11] VITALS: BP 111/70
[2021-07-03 15:46] VITALS: BP 119/71
[2021-07-03] MEDS: DEXTROSE 5%-LACTATED RINGERS 1,000 ML IV SCH (16:18)
== END 2021-07-03 20:14 | disposition left against medical advice (07) ==
LOC: EDH 13:44 → EDHIP 20:33 → 3BH 07-03 00:07
PROVIDERS: ADMIT Internal Medicine; ATTEND Internal Medicine
DX: E10.649 Type 1 diabetes mellitus with hypoglycemia without coma (principal); R41.82 Altered mental status, unspecified; I73.9 Peripheral vascular disease, unspecified; K31.84 Gastroparesis; N17.9 Acute kidney failure, unspecified; I12.9 Hypertensive chronic kidney disease with stage 1 through stage 4 chronic kidney disease, or unspecified chronic kidney disease; N18.9 Chronic kidney disease, unspecified; E78.5 Hyperlipidemia, unspecified; G93.41 Metabolic encephalopathy; F41.9 Anxiety disorder, unspecified; G40.909 Epilepsy, unspecified, not intractable, without status epilepticus; Z79.82 Long term (current) use of aspirin; Z53.29 Procedure and treatment not carried out because of patient's decision for other reasons; Z79.4 Long term (current) use of insulin; Z79.899 Other long term (current) drug therapy; Z98.890 Other specified postprocedural states
CPT/HCPCS: 36415 ×2; 71045; 80048; 80053; 81001; 82533; 82948 ×16; 83036; 84443; 85025 ×2; 96361 ×2; 96372; 96374; 96376 ×2; 99284; G0378 ×23; J1650; J3490 ×2; J7070 ×5

== ENCOUNTER 2022-08-13 01:32 | Observation (INO) | payer MEDICARE ==
[~2022-08-13] VITALS: Ht 167.6 cm; Wt 98.1 kg
[~2022-08-13 01:32] MED LIST changes: -ACET-2247 PO; -AEC81 PO; -CLIN-141 PO; -CYCL-309 PO; +ELUX100T PO; -FURO40TA7 PO; -HYDR25TA PO; -ISOS30TA92 PO; -METF-444 PO; -METO-391 PO; -MOXI400T33 PO; -PANT40TA54 PO; +PROM25TA7 PO
[2022-08-13] MEDS ORDERED: DEXTROSE 50%-WATER 50 ML DISP.SYRIN IV ONE ×2 (01:34→02:00)
[2022-08-13] MEDS ORDERED: GLUCAGON 1MG KIT 1 MG ML ONE (01:41)
[2022-08-13 01:49] LABS: BASOPHILS % (AUTO) 0.5 % (0.0-5.0); EOSINOPHILS % (AUTO) 3.9 % (0.0-8.0); HEMATOCRIT 35.3 % (42-54); LYMPHOCYTES % (AUTO) 11.6 % (21.0-51.0); MEAN CORPUSCULAR HEMOGLOBIN 27.7 pg (27.0-33.0); MEAN CORPUSCULAR HGB CONC 31.2 g/dL (32.0-36.0); MEAN CORPUSCULAR VOLUME 88.9 fL (79-99); MONOCYTES % (AUTO) 6.3 % (3.0-13.0); NEUTROPHILS % (AUTO) 77.3 % (40.0-77.0); PLATELET COUNT (AUTO) 376 K/uL (130-400); RED BLOOD CELL COUNT(AUTO) 3.97 MIL/uL (4.50-6.20); RED CELL DISTRIBUTION WIDTH 14.8 % (11.0-15.5); WHITE BLOOD COUNT (AUTO) 15.2 K/uL (4.8-10.8)
[2022-08-13] MEDS ORDERED: GLUCAGON 1MG KIT 1 MG ML SQ ONE (02:00)
[2022-08-13 02:02] LABS: ALBUMIN 3.2 g/dL (3.5-5.0); CREATININE 1.5 mg/dL (0.5-1.5); POTASSIUM 3.9 mmol/L (3.5-5.1); TOTAL PROTEIN, SERUM 7.7 g/dL (6.0-8.3)
[2022-08-13] MEDS ORDERED: CLONIDINE HCL 0.1 MG TABLET PO PRN (05:00)
[2022-08-13] MEDS ORDERED: DEXTROSE 5%-LACTATED RINGERS 1,000 ML IV SCH (05:00)
[2022-08-13] MEDS ORDERED: HYDRALAZINE 20MG/ML VIAL IV PRN (05:00)
[2022-08-13] MEDS ORDERED: LABETALOL 20MG SYG IV PRN (05:00)
[2022-08-13] MEDS ORDERED: ONDANSETRON 4MG INJ IVP PRN (05:00)
[2022-08-13] MEDS ORDERED: ACETAMINOPHEN 325 MG TAB PO PRN (05:00)
[2022-08-13] MEDS: INSULIN HUMULIN R 100 UNIT/ML 3ML SQ SCH ×3 (07:30→16:30)
[2022-08-13 08:00] VITALS: BP 134/84
[2022-08-13 08:19] LABS: INR 0.95 (0.85-1.15); PROTHROMBIN TIME 10.4 SEC (9.6-11.6)
[2022-08-13 08:20] LABS: PARTIAL THROMBOPLASTIN TIME 26.5 SEC (26.3-35.5)
[2022-08-13] MEDS: PANTOPRAZOLE 40 MG TAB DR PO SCH (08:28)
[2022-08-13] MEDS: ENOXAPARIN SODIUM 30 MG/0.3 ML SQ SCH (08:30)
[2022-08-13 12:00] VITALS: BP 130/65
[2022-08-13 12:13] LABS: APPEARANCE,URINE CLEAR (CLEAR); BILIRUBIN,URINE NEGATIVE (NEGATIVE); COLOR,URINE COLORLESS (YELLOW); GLUCOSE, URINE (UA) NEGATIVE (NEGATIVE); KETONES,URINE NEGATIVE (NEGATIVE); LEUKOCYTE ESTERASE ,URINE NEGATIVE Leu/uL (NEGATIVE); NITRATE,URINE NEGATIVE (NEGATIVE); OCCULT BLOOD,URINE NEGATIVE (NEGATIVE); PROTEIN,URINE 20 mg/dL (NEGATIVE); UROBILINOGEN,URINE 0.2 mg/dL (0.2-1.0)
[2022-08-13 12:15] LABS: AMPHET/METH SCREEN,URINE NEGATIVE (NEGATIVE); BARBITURATE SCREEN, URINE NEGATIVE (NEGATIVE); BENZODIAZEPINES SCREEN,URINE NEGATIVE (NEGATIVE); CANNABINOID SCREEN,URINE NEGATIVE (NEGATIVE); COCAINE SCREEN,URINE NEGATIVE (NEGATIVE); OPIATE SCREEN,URINE NEGATIVE (NEGATIVE); PHENCYCLIDINE SCREEN,URINE NEGATIVE (NEGATIVE)
[2022-08-13 12:22] LABS: MUCUS,URINE RARE LPF (None Seen); RBC,URINE 0-1 /HPF (0-1); SQUAMOUS EPITHELIAL CELL,UR RARE /HPF (0-2); WBC,URINE 0-1 /HPF (0-1)
[2022-08-13 16:00] VITALS: BP 109/61
[2022-08-13] MEDS ORDERED: LISINOPRIL 10 MG TABLET PO SCH (16:00)
[2022-08-13 21:50] VITALS: BP 119/82
[2022-08-13 23:46] VITALS: BP 102/66
[2022-08-14 04:13] VITALS: BP 127/68
[2022-08-14 05:29] LABS: BASOPHILS % (AUTO) 0.9 % (0.0-5.0); EOSINOPHILS % (AUTO) 9.5 % (0.0-8.0); HEMATOCRIT 35.3 % (42-54); LYMPHOCYTES % (AUTO) 20.2 % (21.0-51.0); MEAN CORPUSCULAR HEMOGLOBIN 28.2 pg (27.0-33.0); MEAN CORPUSCULAR HGB CONC 30.3 g/dL (32.0-36.0); MEAN CORPUSCULAR VOLUME 92.9 fL (79-99); MONOCYTES % (AUTO) 8.2 % (3.0-13.0); NEUTROPHILS % (AUTO) 60.9 % (40.0-77.0); PLATELET COUNT (AUTO) 339 K/uL (130-400); WHITE BLOOD COUNT (AUTO) 10.5 K/uL (4.8-10.8)
[2022-08-14 05:43] LABS: CREATININE 1.3 mg/dL (0.5-1.5); MAGNESIUM 1.7 mg/dL (1.80-2.40); PHOSPHORUS 2.9 mg/dL (2.5-4.9); POTASSIUM 4.8 mmol/L (3.5-5.1)
[2022-08-14] MEDS: INSULIN HUMULIN R 100 UNIT/ML 3ML SQ SCH ×3 (07:30→16:24)
[2022-08-14 08:00] VITALS: BP 134/85
[2022-08-14] MEDS: PANTOPRAZOLE 40 MG TAB DR PO SCH (10:15)
[2022-08-14] MEDS: ENOXAPARIN SODIUM 30 MG/0.3 ML SQ SCH (10:20)
[2022-08-14] MEDS ORDERED: MAGNESIUM 2GM PREMIX 50ML 50 ML IV PRN (11:00)
[2022-08-14] MEDS ORDERED: KCL 20 MEQ ERTAB PO PRN (11:00)
[2022-08-14] MEDS ORDERED: POTASSIUM CHLORIDE 10% ELIXIR 20 MEQ/15 ML UDCUP PO PRN (11:00)
[2022-08-14] MEDS ORDERED: POTASSIUM CHLORIDE 20MEQ/100ML 100 ML IV PRN (11:00)
[2022-08-14] MEDS ORDERED: LIDOCAINE HCL-MPF 1% 2ML VIAL IV PRN (11:00)
[2022-08-14 12:00] VITALS: BP 143/84
== END 2022-08-14 17:51 | disposition home or self-care (01) ==
LOC: EDH 01:32 → EDHIP 04:50 → 3DH 06:30
PROVIDERS: ADMIT Internal Medicine; ATTEND Internal Medicine
DX: G93.41 Metabolic encephalopathy (principal); E11.649 Type 2 diabetes mellitus with hypoglycemia without coma; I10 Essential (primary) hypertension; I73.9 Peripheral vascular disease, unspecified; R41.82 Altered mental status, unspecified; D72.829 Elevated white blood cell count, unspecified; G40.909 Epilepsy, unspecified, not intractable, without status epilepticus; E11.51 Type 2 diabetes mellitus with diabetic peripheral angiopathy without gangrene; E11.43 Type 2 diabetes mellitus with diabetic autonomic (poly)neuropathy; K31.84 Gastroparesis; Z79.01 Long term (current) use of anticoagulants; Z90.49 Acquired absence of other specified parts of digestive tract; Z79.899 Other long term (current) drug therapy; Z98.890 Other specified postprocedural states; Z79.84 Long term (current) use of oral hypoglycemic drugs
CPT/HCPCS: 96374; 96372 ×2; 96361; 99285; 80053; 80305; 85025 ×2; 85610; 85730; 87040 ×2; 82948 ×10; 81001; 36415 ×2; 71045; 93005; 96375; 83735; 84100; 80048; 83605; 84145; G0378 ×37; J3490; J7070; J1610; J1650 ×2; J3475

== ENCOUNTER 2023-08-27 15:52 | Observation (INO) | payer OTHER, MEDICARE ==
[~2023-08-27] VITALS: Ht 167.6 cm; Wt 89.8 kg
[2023-08-27 18:29] LABS: BASOPHILS # (AUTO) 0.07 K/uL (0.00-0.20); BASOPHILS % (AUTO) 0.5 % (0.0-5.0); EOSINOPHILS # (AUTO) 0.03 K/uL (0.00-0.70); EOSINOPHILS % (AUTO) 0.2 % (0.0-8.0); HEMATOCRIT 38.3 % (42-54); IMMATURE GRANULOCYTE ABSOLUTE 0.08 K/uL (0-1); LYMPHOCYTES # (AUTO) 1.5 K/uL (1.0-4.8); LYMPHOCYTES % (AUTO) 10.8 % (21.0-51.0); MEAN CORPUSCULAR HEMOGLOBIN 27.3 pg (27.0-33.0); MEAN CORPUSCULAR HGB CONC 32.6 g/dL (32.0-36.0); MEAN CORPUSCULAR VOLUME 83.6 fL (79-99); MONOCYTES # (AUTO) 0.4 K/uL (0.1-1.0); NEUTROPHILS # (AUTO) 12.1 K/uL (1.8-7.7); NEUTROPHILS % (AUTO) 84.9 % (40.0-77.0); PLATELET COUNT (AUTO) 444 K/uL (130-400); RED BLOOD CELL COUNT(AUTO) 4.58 MIL/uL (4.50-6.20); RED CELL DISTRIBUTION WIDTH 14.8 % (11.0-15.5); WHITE BLOOD COUNT (AUTO) 14.2 K/uL (4.8-10.8)
[2023-08-27 18:41] LABS: ALBUMIN 3.4 g/dL (3.5-5.0); BILIRUBIN,TOTAL 0.4 mg/dL (0.2-1.0); CREATININE 1.6 mg/dL (0.5-1.5); POTASSIUM 3.5 mmol/L (3.5-5.1); TOTAL PROTEIN, SERUM 8.2 g/dL (6.0-8.3)
[2023-08-27 18:47] LABS: B-TYPE NATRIURETIC PEPTIDE 30 pg/mL (0-100)
[2023-08-27] MEDS: DEXTROSE 50%-WATER 50 ML DISP.SYRIN IV ONE (18:50)
[2023-08-27] MEDS: SODIUM CL 4MEQ/ML 30ML 154 MEQ in DEXTROSE 10%-WATER 961.5 ML IV SCH (20:47)
[2023-08-27] MEDS: CEFTRIAXONE 2GM VIAL IVPB ONE (22:16)
[2023-08-27 22:40] LABS: APPEARANCE,URINE CLEAR (CLEAR); BILIRUBIN,URINE NEGATIVE (NEGATIVE); COLOR,URINE COLORLESS (YELLOW); GLUCOSE, URINE (UA) 50 mg/dL (NEGATIVE); KETONES,URINE NEGATIVE (NEGATIVE); LEUKOCYTE ESTERASE ,URINE NEGATIVE Leu/uL (NEGATIVE); NITRATE,URINE NEGATIVE (NEGATIVE); OCCULT BLOOD,URINE NEGATIVE (NEGATIVE); PH,URINE 5.5 (5.0-8.0); PROTEIN,URINE 10 mg/dL (NEGATIVE); UROBILINOGEN,URINE 0.2 mg/dL (0.2-1.0)
[2023-08-27] MEDS: HYDROCODONE/ACETAMINOPHEN 5/325 MG TAB PO ONE (22:51)
[2023-08-27 22:58] LABS: ADD UA MICROSCOPIC YES
[2023-08-27 23:09] LABS: RBC,URINE 0-1 /HPF (0-1); WBC,URINE 0-1 /HPF (0-1)
[2023-08-27] MEDS: CEFTRIAXONE 1G VIAL IVPB SCH (23:25)
[2023-08-27] MEDS: SOLU-MEDROL 125MG VIAL IVP ONE (23:26)
[2023-08-27] MEDS ORDERED: INSULIN HUMULIN R 100 UNIT/ML 3ML SQ PRN (23:30)
[2023-08-27] MEDS ORDERED: DEXTROSE 10%-WATER 1,000 ML IV SCH (23:30)
[2023-08-28] MEDS ORDERED: TOPI25TA42 PO (03:11)
[2023-08-28 04:00] VITALS: BP 151/94; PULSE 68; RESP 18; O2SAT 98
[2023-08-28 07:48] VITALS: BP 101/72; PULSE 83; RESP 16
[2023-08-28 08:00] VITALS: O2SAT 98
[2023-08-28] MEDS: INSULIN HUMULIN R 100 UNIT/ML 3ML SQ PRN (10:04)
[2023-08-28 11:13] VITALS: BP 128/85; PULSE 90; RESP 16
[2023-08-28] MEDS ORDERED: DEXTROSE 50%-WATER 50 ML DISP.SYRIN IV PRN (11:30)
[2023-08-28] MEDS ORDERED: GLUCAGON 1MG KIT 1 MG ML IM PRN (11:30)
[2023-08-28 11:35] LABS: BASOPHILS % (AUTO) 0.1 % (0.0-5.0); HEMATOCRIT 35.1 % (42-54); MEAN CORPUSCULAR VOLUME 85.4 fL (79-99); MONOCYTES % (AUTO) 1.2 % (3.0-13.0); RED BLOOD CELL COUNT(AUTO) 4.11 MIL/uL (4.50-6.20)
[2023-08-28 12:01] LABS: ALBUMIN 2.7 g/dL (3.5-5.0); BILIRUBIN,TOTAL 0.6 mg/dL (0.2-1.0); CREATININE 1.9 mg/dL (0.5-1.5); MAGNESIUM 1.8 mg/dL (1.80-2.40); POTASSIUM 5.3 mmol/L (3.5-5.1); TOTAL PROTEIN, SERUM 7.2 g/dL (6.0-8.3)
[2023-08-28 12:05] LABS: BASOPHILS # (AUTO) 0.02 K/uL (0.00-0.20); IMMATURE GRANULOCYTE ABSOLUTE 0.15 K/uL (0-1); LYMPHOCYTES # (AUTO) 1.1 K/uL (1.0-4.8); MEAN CORPUSCULAR HGB CONC 31.6 g/dL (32.0-36.0); MONOCYTES # (AUTO) 0.3 K/uL (0.1-1.0); NEUTROPHILS # (AUTO) 19.6 K/uL (1.8-7.7); PLATELET COUNT (AUTO) 345 K/uL (130-400); RED CELL DISTRIBUTION WIDTH 14.9 % (11.0-15.5); WHITE BLOOD COUNT (AUTO) 21.1 K/uL (4.8-10.8)
[2023-08-28 15:32] VITALS: BP 100/58; PULSE 100; RESP 16
[2023-08-28] MEDS ORDERED: PRED5TAB PO (15:49)
[2023-08-28] MEDS ORDERED: ESCI20TA38 PO (15:49)
[2023-08-28] MEDS ORDERED: BUSP5TAB3 PO (15:49)
[2023-08-28] MEDS ORDERED: TOPI25TA48 PO (15:49)
[2023-08-28] MEDS ORDERED: LEVE500T19 PO (15:49)
[2023-08-28] MEDS ORDERED: CEFD300C3 PO (15:49)
[2023-08-28 20:00] VITALS: BP 112/69; PULSE 87; RESP 18; O2SAT 98
[2023-08-28] MEDS: BUSPIRONE HCL 5 MG TABLET PO SCH (20:38)
[2023-08-28] MEDS: LEVETIRACETAM 500 MG TABLET PO SCH (20:38)
[2023-08-28] MEDS ORDERED: CEFDINIR 300 MG PO SCH (21:00)
[2023-08-29] VITALS: BP 107/59; PULSE 78; RESP 18
[2023-08-29 04:00] VITALS: BP 108/67; PULSE 70; RESP 18
[2023-08-29 07:56] VITALS: BP 120/73; PULSE 67; RESP 16
[2023-08-29] MEDS: (Escitalopram Oxalate 20 MG) PO SCH (09:00)
[2023-08-29] MEDS: PREDNISONE 5 MG TABLET PO SCH (09:34)
[2023-08-29 10:00] VITALS: O2SAT 97
[2023-08-29 11:09] VITALS: BP 118/70; PULSE 69; RESP 16
[2023-08-29 12:37] LABS: HEMATOCRIT 35.4 % (42-54); MEAN CORPUSCULAR HEMOGLOBIN 27.1 pg (27.0-33.0); MEAN CORPUSCULAR HGB CONC 31.6 g/dL (32.0-36.0); MEAN CORPUSCULAR VOLUME 85.7 fL (79-99); PLATELET COUNT (AUTO) 381 K/uL (130-400); RED BLOOD CELL COUNT(AUTO) 4.13 MIL/uL (4.50-6.20); RED CELL DISTRIBUTION WIDTH 15.4 % (11.0-15.5); WHITE BLOOD COUNT (AUTO) 13.7 K/uL (4.8-10.8)
[2023-08-29 13:31] LABS: EOSINOPHILS % (MANUAL) 1 % (1-6); LYMPHOCYTES % (MANUAL) 28 % (22-44); MAN.DIFF COMMENT-IMPRESSION MANUAL DIFFERENTIAL; MONOCYTES % (MANUAL) 5 % (2-9); SEGMENTED NEUTROPHILS % 66 % (40-70); TOTAL CELLS COUNTED 100
[2023-08-29 13:32] LABS: PLATELET MORPHOLOGY COMMENT ADEQUATE
[2023-08-29 15:26] VITALS: BP 137/76; PULSE 76; RESP 18
== END 2023-08-29 17:45 | disposition home or self-care (01) ==
LOC: EDH 15:52 → EDHIP 23:02 → 4CH 08-28 03:27
PROVIDERS: ADMIT Internal Medicine; ATTEND Internal Medicine
DX: A41.9 Sepsis, unspecified organism (principal); E11.649 Type 2 diabetes mellitus with hypoglycemia without coma; D72.829 Elevated white blood cell count, unspecified; E66.9 Obesity, unspecified; M25.561 Pain in right knee; E11.51 Type 2 diabetes mellitus with diabetic peripheral angiopathy without gangrene; E86.0 Dehydration; N19 Unspecified kidney failure; R54 Age-related physical debility; I10 Essential (primary) hypertension; Z68.32 Body mass index [BMI] 32.0-32.9, adult; Z88.6 Allergy status to analgesic agent; Z89.511 Acquired absence of right leg below knee; Z79.4 Long term (current) use of insulin
CPT/HCPCS: 82948 ×28; 96374; 96361 ×2; 96375; 99285; 80053 ×2; 83880; 85025 ×3; 87040 ×2; 83605 ×2; 81001; 36415 ×3; 71045; 73562; 83735; 85651; 86140; 71250; 74176; 84145; G0378 ×43; J2930; J7070; J0696; J7512; 96376; J3490; J7131

== ENCOUNTER 2023-10-31 18:33 | Inpatient (IN) | payer OTHER, MEDICARE ==
[~2023-10-31] VITALS: Ht 167.6 cm; Wt 84.4 kg
[~2023-10-31 18:33] MED LIST changes: +BUSP5TAB3 PO; +CEFD300C3 PO; -ELUX100T PO; +ESCI20TA38 PO; -GLUC1KIT6 SQ; +LEVE500T19 PO; -NITR0.4T SL; +PRED5TAB PO; -PROM25TA7 PO; +TOPI25TA48 PO
[2023-10-31] MEDS ORDERED: GLUCAGON 1MG KIT 1 MG ML IM PRN (19:30)
[2023-10-31 19:56] LABS: BASOPHILS # (AUTO) 0.06 K/uL (0.00-0.20); BASOPHILS % (AUTO) 0.4 % (0.0-5.0); EOSINOPHILS # (AUTO) 0.06 K/uL (0.00-0.70); EOSINOPHILS % (AUTO) 0.4 % (0.0-8.0); HEMATOCRIT 39.1 % (42-54); IMMATURE GRANULOCYTE ABSOLUTE 0.06 K/uL (0-1); LYMPHOCYTES # (AUTO) 1.4 K/uL (1.0-4.8); LYMPHOCYTES % (AUTO) 8.9 % (21.0-51.0); MEAN CORPUSCULAR HEMOGLOBIN 26.6 pg (27.0-33.0); MEAN CORPUSCULAR HGB CONC 32.2 g/dL (32.0-36.0); MEAN CORPUSCULAR VOLUME 82.5 fL (79-99); MONOCYTES # (AUTO) 0.7 K/uL (0.1-1.0); MONOCYTES % (AUTO) 4.2 % (3.0-13.0); NEUTROPHILS # (AUTO) 13.6 K/uL (1.8-7.7); NEUTROPHILS % (AUTO) 85.7 % (40.0-77.0); PLATELET COUNT (AUTO) 464 K/uL (130-400); RED BLOOD CELL COUNT(AUTO) 4.74 MIL/uL (4.50-6.20); RED CELL DISTRIBUTION WIDTH 15.2 % (11.0-15.5); WHITE BLOOD COUNT (AUTO) 15.9 K/uL (4.8-10.8)
[2023-10-31 20:11] LABS: ALBUMIN 3.3 g/dL (3.5-5.0); BILIRUBIN,TOTAL 0.7 mg/dL (0.2-1.0); CREATININE 1.5 mg/dL (0.5-1.3); POTASSIUM 3.7 mmol/L (3.5-5.1); TOTAL PROTEIN, SERUM 8.5 g/dL (6.0-8.3)
[2023-10-31] MEDS: DEXTROSE 10%-WATER 1,000 ML IV SCH (20:42)
[2023-10-31] MEDS: DEXTROSE 50%-WATER 50 ML DISP.SYRIN IV ONE (20:43)
[2023-10-31] MEDS ORDERED: DEXTROSE 10%-WATER 1,000 ML IV ONE (21:00)
[2023-11-01] VITALS (72 sets, daily range): BP systolic 85–138; BP diastolic 26–79; PULSE 76–98; RESP 9–24; O2SAT 99–100
[2023-11-01] MEDS: DEXTROSE 10%-WATER 1,000 ML IV SCH (01:18)
[2023-11-01] MEDS: ONDANSETRON 4MG INJ IVP ONE (02:14)
[2023-11-01] MEDS: DEXTROSE 50%-WATER 50 ML DISP.SYRIN IV PRN (02:14)
[2023-11-01] MEDS: MORPHINE 4 MG SYG IVP ONE (02:14)
[2023-11-01] MEDS ORDERED: TIRZ2.5P SQ (03:32)
[2023-11-01 06:15] LABS: BASOPHILS # (AUTO) 0.08 K/uL (0.00-0.20); BASOPHILS % (AUTO) 0.5 % (0.0-5.0); EOSINOPHILS # (AUTO) 0.37 K/uL (0.00-0.70); EOSINOPHILS % (AUTO) 2.3 % (0.0-8.0); HEMATOCRIT 34.8 % (42-54); IMMATURE GRANULOCYTE ABSOLUTE 0.08 K/uL (0-1); LYMPHOCYTES # (AUTO) 2.5 K/uL (1.0-4.8); LYMPHOCYTES % (AUTO) 15.7 % (21.0-51.0); MEAN CORPUSCULAR HGB CONC 31.9 g/dL (32.0-36.0); MEAN CORPUSCULAR VOLUME 81.5 fL (79-99); MONOCYTES % (AUTO) 6.1 % (3.0-13.0); NEUTROPHILS % (AUTO) 74.9 % (40.0-77.0); PLATELET COUNT (AUTO) 468 K/uL (130-400); RED BLOOD CELL COUNT(AUTO) 4.27 MIL/uL (4.50-6.20); RED CELL DISTRIBUTION WIDTH 15.3 % (11.0-15.5)
[2023-11-01 06:28] LABS: ALBUMIN 2.8 g/dL (3.5-5.0); BILIRUBIN,TOTAL 0.9 mg/dL (0.2-1.0); CREATININE 1.4 mg/dL (0.5-1.3); MAGNESIUM 1.6 mg/dL (1.80-2.40); POTASSIUM 3.6 mmol/L (3.5-5.1); TOTAL PROTEIN, SERUM 7.3 g/dL (6.0-8.3)
[2023-11-01] MEDS: HYDROCORTISONE SOD SUCCINATE 100 MG/2 ML VIAL ONE (06:46)
[2023-11-01] MEDS: HYDROCORTISONE SOD SUCCINATE 100 MG/2 ML VIAL IV ONE (06:46)
[2023-11-01] MEDS: TOPIRAMATE 25 MG TABLET PO SCH (08:11)
[2023-11-01] MEDS: DEXTROSE 50%-WATER 50 ML DISP.SYRIN IV SCH (08:11)
[2023-11-01] MEDS: LEVETIRACETAM 500 MG TABLET PO SCH (08:11)
[2023-11-01] MEDS ORDERED: POTASSIUM CHLORIDE 20MEQ/100ML 100 ML IV PRN ×2 (09:00)
[2023-11-01] MEDS ORDERED: KCL 20 MEQ ERTAB PO PRN (09:00)
[2023-11-01] MEDS: SODIUM CL 4MEQ/ML 30ML 154 MEQ in DEXTROSE 10%-WATER 961.5 ML IV SCH (09:44)
[2023-11-01] MEDS: FAMOTIDINE 20MG TAB PO SCH (09:48)
[2023-11-01] MEDS: ENOXAPARIN SODIUM 40 MG/0.4 ML SYRINGE SQ SCH (09:49)
[2023-11-01] MEDS: ZOSYN 3.375GM +NS 50ML IV ONE (09:53)
[2023-11-01] MEDS: POTASSIUM CHLORIDE 10% ELIXIR 20 MEQ/15 ML UDCUP PO PRN (09:54)
[2023-11-01] MEDS: MAGNESIUM 2GM PREMIX 50ML 50 ML IV PRN (09:54)
[2023-11-01 10:07] LABS: AMPHET/METH SCREEN,URINE NEGATIVE (NEGATIVE); BARBITURATE SCREEN, URINE NEGATIVE (NEGATIVE); BENZODIAZEPINES SCREEN,URINE NEGATIVE (NEGATIVE); CANNABINOID SCREEN,URINE NEGATIVE (NEGATIVE); COCAINE SCREEN,URINE NEGATIVE (NEGATIVE); OPIATE SCREEN,URINE NEGATIVE (NEGATIVE); PHENCYCLIDINE SCREEN,URINE NEGATIVE (NEGATIVE)
[2023-11-01 10:20] LABS: APPEARANCE,URINE CLEAR (CLEAR); BILIRUBIN,URINE NEGATIVE (NEGATIVE); COLOR,URINE COLORLESS (YELLOW); GLUCOSE, URINE (UA) 70 mg/dL (NEGATIVE); KETONES,URINE NEGATIVE (NEGATIVE); LEUKOCYTE ESTERASE ,URINE 75 Leu/uL (NEGATIVE); NITRATE,URINE NEGATIVE (NEGATIVE); OCCULT BLOOD,URINE NEGATIVE (NEGATIVE); PH,URINE 5.5 (5.0-8.0); PROTEIN,URINE NEGATIVE (NEGATIVE); UROBILINOGEN,URINE 0.2 mg/dL (0.2-1.0)
[2023-11-01 10:21] LABS: ADD UA MICROSCOPIC YES
[2023-11-01 10:28] LABS: SQUAMOUS EPITHELIAL CELL,UR RARE /HPF (0-2)
[2023-11-01] MEDS ORDERED: DEXTROSE 50%-WATER 50 ML DISP.SYRIN IV PRN (12:30)
[2023-11-01] MEDS: CEFTRIAXONE 2GM VIAL IVPB SCH (15:37)
[2023-11-01] MEDS: TRAMADOL HCL 50 MG TABLET PO PRN (20:56)
[2023-11-02] VITALS (26 sets, daily range): BP systolic 90–135; BP diastolic 53–76; PULSE 67–91; RESP 11–20; O2SAT 99–100
[2023-11-02 08:48] LABS: HEMATOCRIT 33.7 % (42-54); MEAN CORPUSCULAR HEMOGLOBIN 26.6 pg (27.0-33.0); MEAN CORPUSCULAR HGB CONC 31.8 g/dL (32.0-36.0); MEAN CORPUSCULAR VOLUME 83.8 fL (79-99); PLATELET COUNT (AUTO) 425 K/uL (130-400); RED BLOOD CELL COUNT(AUTO) 4.02 MIL/uL (4.50-6.20); RED CELL DISTRIBUTION WIDTH 15.8 % (11.0-15.5); WHITE BLOOD COUNT (AUTO) 11.7 K/uL (4.8-10.8)
[2023-11-02 09:00] LABS: ALBUMIN 2.7 g/dL (3.5-5.0); BILIRUBIN,TOTAL 0.7 mg/dL (0.2-1.0); CREATININE 1.7 mg/dL (0.5-1.3); POTASSIUM 4.3 mmol/L (3.5-5.1); TOTAL PROTEIN, SERUM 7.3 g/dL (6.0-8.3)
[2023-11-02 09:21] LABS: BAND NEUTROPHILS % (MANUAL) 1 % (0-2); EOSINOPHILS % (MANUAL) 3 % (1-6); LYMPHOCYTES % (MANUAL) 22 % (22-44); MAN.DIFF COMMENT-IMPRESSION MANUAL DIFFERENTIAL; MONOCYTES % (MANUAL) 2 % (2-9); PLATELET MORPHOLOGY COMMENT SLIGHT INCREASED; SEGMENTED NEUTROPHILS % 72 % (40-70); TOTAL CELLS COUNTED 100; WBC MORPHOLOGY CONSISTENT W/DIFF
== END 2023-11-02 16:30 | disposition home or self-care (01) | DRG 872 ==
LOC: EDH 18:33 → EDHIP 23:58 → 2BH 11-01 02:45
PROVIDERS: ADMIT Internal Medicine; ATTEND Internal Medicine
DX: A41.9 Sepsis, unspecified organism (principal); E44.1 Mild protein-calorie malnutrition; N17.9 Acute kidney failure, unspecified; D84.9 Immunodeficiency, unspecified; E11.649 Type 2 diabetes mellitus with hypoglycemia without coma; R55 Syncope and collapse; D64.9 Anemia, unspecified; E11.22 Type 2 diabetes mellitus with diabetic chronic kidney disease; E11.51 Type 2 diabetes mellitus with diabetic peripheral angiopathy without gangrene; F41.9 Anxiety disorder, unspecified; F32.A Depression, unspecified; G40.909 Epilepsy, unspecified, not intractable, without status epilepticus; E86.0 Dehydration; E83.42 Hypomagnesemia; I12.9 Hypertensive chronic kidney disease with stage 1 through stage 4 chronic kidney disease, or unspecified chronic kidney disease; K52.9 Noninfective gastroenteritis and colitis, unspecified; N18.30 Chronic kidney disease, stage 3 unspecified; Z79.4 Long term (current) use of insulin; Z79.52 Long term (current) use of systemic steroids; Z88.6 Allergy status to analgesic agent; Z89.511 Acquired absence of right leg below knee; Z68.30 Body mass index [BMI] 30.0-30.9, adult
CPT/HCPCS: 36415; 71045; 80053; 80305; 81001; 82533; 82948; 83525; 83605; 83735; 83880; 84145; 84443; 84484; 85025; 87040; 87088; 93005; G0378; J0696; J1650; J1720; J2270; J2405; J2543; J3475; J3490; J7070; J7131